=== PATIENT | male | born 1980 | race Caucasian/White ===

== ENCOUNTER 2025-03-29 18:07 | Emergency (ER) | payer OTHER, SELFPAY ==
--- OUTSIDE RECORDS SUMMARY | 2025-03-29 18:10 | XMS_ITS | Clinical Summary ---
Author Organization [facility] Address [address] [place] [address] Care Team Providers Care Manager Business Name Role Phone Marlon Herrera MD Primary Care Provider [phone] Allergies No known active allergies Medications albuterol HFA (PROVENTIL HFA,VENTOLIN HFA,PROAIR HFA) 90 mcg/actuation inhaler Inhale 2 puffs every 6 hours as needed Active clonazePAM (KlonoPIN) 1 mg tablet Take 1 tablet (1 mg total) by mouth daily 5 Active escitalopram (LEXAPRO) 20 mg tablet Take 1 tablet (20 mg total) by mouth daily 5 Active polyethylene glycol (GoLYTELY) 236-22.74-6.74 -5.86 gram solution Drink 2L(half of jug)at 6pm night before procedure and 2L(remainder of jug)at 3:30 am day of test FOLLOW INSTRUCTIONS SENT BY OUR OFFICE 4000 mL 5 Active fluticasone propion-salmete roL (ADVAIR DISKUS) 100-50 mcg/dose diskus inhaler Inhale 1 puff 2 (two) times a day 180 each 1 5 Active Active Problems Problem Noted Date Diagnosed Date History of colon polyps 01/29/2025 Family history of colon cancer in mother 025 Assessment & Plan (08/24/2024 4:54 PM CDT): Screening colonoscopy ordered. Mild persistent asthma without complication 08/02 Assessment & Plan (08/24/2024 4:54 PM CDT): Continue with generic Advair (Wixela) and p.r.n. albuterol. Obsessive-compulsive disorder 08/24/2024 Assessment & Plan (08/24/2024 4:54 PM CDT): From psychiatrist, currently on Lexapro 30 mg daily. ECG performed in the office to monitor for any QTC prolongation. Basal cell carcinoma (BCC) of face 10/14/2012 Skin neoplasm 09/28/2012 Skin benign neoplasm 09/28/2012 Tinea versicolor 12/05/2010 Encounters Date Type Department Care Team Description 01/29/2025 Orders Only [facility] at the [address] [place] [address] Marlon Herrera MD 12/29/2024 Results Follow-Up [facility] [address] [place] [address] Advanced Medicine 12th [place] [address] [place] [address] Kimberlee Pedraza MD Surgical pathology 12/28/2024 11:15 AM CDT Anesthesia Event [facility] [address] [address] Sandip Bryson MD Laubert, Desiree Elizabeth, GADIEL 12/28/2024 10:30 AM CDT - 12/28/2024 11:15 AM CDT Surgery [facility] [address] [address] Kimberlee Pedraza MD COLON REMOVAL SNARE 12/28/2024 9:37 AM CDT - 12/28/2024 12:29 PM CDT Hospital Encounter [facility] [address] [address] Curtis Martinez MD PhD Kimberlee Pedraza MD Family history of colon cancer Discharge Disposition: Discharge to home or self care from Last 3 Months Immunizations Immunization Administration Dates Next Due Influenza, Quadrivalent, Spl it, Preservative Free, Intramuscular 02/14/2021,02/15/2018,05/21/2017,03/23 Influenza, Trivalent, IM (MDV) 02/06/2020 Influenza, Unspecified 02/01/2024 Pfizer SARS-CoV-2 Monovalent Vaccination (12+ Yrs) PURPLE 04/05/2021,07/30/2020,07/01/2020 Tdap 08/07/2015 Medical History Medical History Date Comments Personal history of other ma lignant neoplasm of skin History of skin cancer - (Ad ded by TW Conv) Asthma Anxiety Skin cancer, basal cell Family History Medical History Relation Name Comments Heart murmur Brother s/p AVR in half brother Melanoma Father during a t rial for melanoma Colon cancer Mother dx in 2018 Lupus Mother dx in bu t remission Melanoma Other Malignant Melan greg Of The Skin - (Added by TW Conv) Relation Name Status Comments Brother Alive Father Mother Alive Other Social History Tobacco Use Types Packs/Day Years Used Date Smoking Tobacco: Never Tobacco Cessation:Counseling Given: Not Answered Alcohol Use Standard Drinks/Week Comments Yes 2 (1 standard drink = 0.6 oz pur e alcohol) PHQ-2 Answer Date Recorded PHQ-2 Total Score (If total score is 3 or more points, staff should administer the PHQ-9) 0 08/24/2024 AUDIT-C Answer Date Recorded Q1: How often do you have a drink containing alc ohol? 2-4 times a month 12/28/2024 Q2: How many drinks containi ng alcohol do you have on a typical day when you are drinking? 3 or 4 12/28/2024 Q3: How often do you have si x or more drinks on one occasion? Less than monthly 12/28/2024 Personal Safety Answer Date Recorded Have you ever been in or are you currently in a harmful physical or emotional relationship or is someone making you feel afraid or unsafe? 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 Not on file Not on file Not on file Last Filed Vital Signs Vital Sign Reading Time Taken Comments Blood Pressure 116/80 12/28/2024 12:05 PM CDT Pulse 54 12/28/2024 12:05 PM CDT Temperature 36.1 C (97 F) 12/28/2024 11:39 AM CDT Respiratory Rate 12 12/28/2024 12:05 PM CDT Oxygen Saturation 96% 12/28/2024 12:05 PM CDT Inhaled Oxygen Concentration - - Weight 102.1 kg (225 lb) 12/28/2024 10:18 AM CDT Height 188 cm (6' 2) 12/28/2024 10:18 AM CDT Body Mass Index 28.89 12/28/2024 10:18 AM CDT Plan of Treatment Scheduled Procedures Name Priority Associated Diagnoses Date/Ti me COLONOSCOPY Open Access Family history of colon cancer in mother Health Maintenance Due Date Last Done Comments Hepatitis C Screening 1980 Varicella Vaccines (1 of 2 - 13+ 2-dose series) 12/30/1992 Hepatitis B Screening 12/30/1997 Regular Well Visit/Exam 18-64 12/30/1997 Pneumococcal vaccine <65 (1 of 2 - PCV) 12/30/1998 HPV Vaccines (1 - 3-dose SCD M series) 12/30/2006 Covid-19 Vaccine (4 - 2024-2 6 season) 2025 04/05/2021, 07/30/2020, 07/01/2020 Influenza Vaccine (#1) 2025 , 02/14/2021, 02/06/2020, Additional history exists DTaP/Tdap/Td Vaccine (2 - Td or Tdap) 08/06/2025 08/07/2015 Depression Screening 08/24/2025 08/24/2024 Colon Cancer Screening-Colonoscopy 12/28/20292024 Procedures Procedure Name Priority Date/Time Associated Diagnosis Comments SURGICAL PATHOLOGY Routine 12/28/2024 11 :44 AM CDT Family history of colon cancer COLON REMOVAL SNARE 12/28/2024 1 1:17 AM CDT Family history of colon cancer COLONOSCOPY 12/28/2024 10:51 AM CDT from Last 3 Months Results * Surgical pathology (12/28/2024 11:44 AM CDT) Tissue (Polyp(s), colon/colorectal, esophageal, gastric) 12/28/2024 11:44 AM CDT Narrative PATHOLOGY [facility] - 12/29/2024 12:40 PM CDT EPIC results best viewed via link to PDF [facility] [place] [address] Note to Patients: This report may contain a detailed description of human tissue sent by a health care provider to the laboratory for pathologic evaluation. The content of this report is essential for diagnosis and may provide important critical findings. This information may be unfamiliar to patients to review without a medical professional present. It is advised that the patient review this report in the presence of a health care provider who can answer questions and explain the details. SURGICAL PATHOLOGY REPORT FINAL Patient Name: CHRISTOPHER EVANS Gender: M : 1980 (Age: 43) Address: [address] [place] [address] Hospital #: [id number] Taken:12/28/2024 Received:12/28/2024 Reported: 12/29/2024 Patient Type: [facility] Service: Gastro Location: Physician(s): Kimberlee Pedraza M.D. Diagnosis: Large bowel, descending colon polyp, biopsy - Tubular adenoma j/12/29/2024 10:20 By this signature, I attest that the above diagnosis is based upon my personal examination of the slides(and/or other material indicated in the diagnosis). Aly Dolan MD PhD Report Electronically Reviewed and Signed Out By Aly Dolan MD PhD 12/29/2024 12:40:03 Ignacio Cross D.O. History: The patient is a 43-year-old man presenting with a family history of colon cancer. Operative procedure: Colon removal snare. Specimen(s) Received: A: Descending colon polyp Gross Description: Received in formalin, labeled with the patient s identifiers and descending colon polyp and consists of a single solorio-pink polypoid fragment(s) of soft tissue measuring 1.0 cm in greatest dimension. Labeled A1. Jar 0. sxst/12/28/2024 14:22 PA(s): Edie Perez By this signature, I attest that the above diagnosis is based upon my personal examination of the slides(and/or other material). Addenda/Procedures The performance characteristics of some immunohistochemical stains, fluorescence in-situ hybridization tests and immunophenotyping by flow cytometry cited in this report (if any) were determined by the Surgical Pathology and Flow Cytometry Departments at [facility] as part of an ongoing dairy quality assurance officer program and in compliance with federally mandated regulations drawn from the Clinical Laboratory Improvement Act of 1988 (CLIA '88). Some of these tests rely on the use of analyte specific reagents and are subject to specific labeling requirements by the US Food and Drug Administration. Such diagnostic tests may only be performed in a facility that is certified by the Department of Health and Human Services as a high complexity laboratory under CLIA '88. The FDA has determined that such clearance or approval is not necessary. This test is used for clinical purposes. It should not be regarded as investigational or for research. Nevertheless, federal rules concerning the medical use of analyte specific reagents require that the following disclaimer be attached to the report: This test was developed and its performance characteristics determined by the Surgical Pathology and Flow Cytometry Departments of [facility]. It has not been cleared or approved by the U. S. Food and Drug Administration. IMAGES AND SCANNED DOCUMENTS, IF INCLUDED, ONLY VIEWABLE IN PDF VERSION OF REPORT Kimberlee Pedraza MD LAB PATHOLOGY ORDERABL ES Final Result [facility] 3rd Floor [place], [place] [phone] * Colonoscopy (12/28/2024 10:51 AM CDT) Anatomical Region Laterality Modality Other Narrative Procedure Note Kimberlee Pedraza MD - 12/28/2024 10:51 AM CDT GI ENDOSCOPY [facility] Patient Name: Christopher Evans Procedure Date: 12/28/2024 10:51 AM Date of : 1980 Admit Type: Outpatient Age: 43 Gender: Male Attending MD: Kimberlee Pedraza M.D., Room: [facility] ENDOSCOPY ROOM 8 Note Status: Finalized Procedure: Colonoscopy Indications: Screening patient at increased risk: Family historyof 1st-degree relative with colorectal cancer at age60 years (or older) Referring MD: Marlon Herrera M.D. Providers: Kimberlee Pedraza M.D., Christopher Núñez M.D. Medicines: Propofol per Anesthesia Complications: No immediate complications. Estimated Blood Loss: Estimated blood loss was minimal. Procedure: Pre-Anesthesia Assessment: - Using IV propofol under the supervision of a ONCOLOGY SOCIAL WORK was determined to be medically necessary for this procedure based on review of the patient's medical history, medications, and prior anesthesiahistory. - Immediately prior to administration ofmedications, the patient was re-assessed for adequacy to receive sedatives. - The risks and benefits of the procedure and the sedation options and risks were discussed with the patient. All questions were answered and informed consent was obtained. The benefits, risks and alternatives of theprocedure and sedation were discussed and informed consentwas obtained. All questions were answered. Please referto the signed informed consent document in the medical record. The scope was passed under direct vision.The CF [id number] endoscope was introduced through the anus and advanced to the cecum, identified by appendiceal orifice and ileocecal valve. The scopewas passed under direct vision. The [id number] endoscope was introduced through the anus andadvanced to the cecum, identified by appendiceal orifice and ileocecal valve. The colonoscopy was performedwithout difficulty. The patient tolerated the procedurewell. The quality of the bowel preparation was good. The ileocecal valve, appendiceal orifice, and rectumwere photographed. The bowel preparation used wasGoLYTELY. Findings: 7 mm polyp was found in the descending colon. The polyp was semi-pedunculated. The polyp was removed with a cold snare. Resection and retrieval were complete. The exam was otherwise without abnormality on direct and retroflexion views. Impression: - Single polyp resected and retrieved Recommendation: - Await pathology results. Attending Participation: I was present and participated during the entire procedure, including non-pantoja portions. Electronically Signed by Kimberlee Pedraza M.D. Kimberlee Pedraza M.D. 12/28/2024 11:46:02 AM . Number of Addenda: 0 Note Initiated On: 12/28/2024 10:51 AM Kimberlee Pedraza MD ENDOSCOPY PROCEDURES F inal Result from Last 3 Months Insurance R [facility] Address: [facility] [id number] [place] [id number] R [facility] Address: [address] [address] Advance Directives For more information, please contact: [phone] * Full Code (Latest Code Status on File) Date Activated Date Inactivated Comments 12/28/2024 10:17 AM 12/28/2024 4:38 PM Care Teams Manager Business Relationship Specialty Start Date End Date Marlon Herrera MD [facility] [address] Angela [address] [address] PCP - General Internal Medicine 08/24/24
--- OUTSIDE RECORDS SUMMARY | 2025-03-29 18:10 | XMS_ITS | Clinical Summary ---
Author Organization [facility] Address [address] [place] [address] Care Team Providers Care Detective Narcotics And Vice Name Role Phone Ney Paulino MD Primary Care Provider [phone] Source Comments [facility],non-owned Affiliates and Associated Physician Practices is amultiple site organization consisting of ambulatory clinics and hospital sitesin [place] and [place]. This disclosure is being madepursuant to the Care Everywhere program and may not contain all information available regarding this patient. Last updated 18.[facility] Dexin Interactive Allergies No known active allergies Medications * Be aware that medications may not be up to date on this document. Alwaysverify current medications with the patient. budesonide-formo terol (SYMBICORT) 80-4.5 MCG/ACT inhaler Inhale 2 Puffs by mouth 2 times daily Active sertraline (ZOLOFT) 100 MG tablet Take 100 mg by mouth once daily Active Immunizations Immunization Administration Dates Next Due TDAP (7yrs+) 08/07/2015 Family History Medical History Relation Name Comments Heart Disease Father Lupus Mother Relation Name Status Comments Father Mother Alive Social History Tobacco Use Types Packs/Day Years Used Date Smoking Tobacco: Former Cigarettes 0 Q uit: 08/06/2004 Alcohol Use Standard Drinks/Week Comments Yes 10 (1 standard drink = 0.6 oz pu re alcohol) Sex and Gender Information Value Date Recorded Sex Assigned at Not on file 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 Gender Identity Not on file Sexual Orientation Not on file Last Filed Vital Signs Vital Sign Reading Time Taken Comments Blood Pressure 135/84 03/24/2016 2:01 PM ARMATURE STRAIGHTENER Pulse 73 03/24/2016 2:01 PM ARMATURE STRAIGHTENER Temperature 36.7 C (98.1 F) 08/06/2015 8:39 PM CDT Respiratory Rate 18 08/06/2015 8:39 PM CDT Oxygen Saturation 99% 08/07/2015 1:07 AM CDT Inhaled Oxygen Concentration - - Weight 95.3 kg (210 lb) 06/05/2016 9:52 AM ARMATURE STRAIGHTENER Height 188 cm (6' 2) 06/05/2016 9:52 AM ARMATURE STRAIGHTENER Body Mass Index 26.96 06/05/2016 9:52 AM ARMATURE STRAIGHTENER Plan of Treatment Health Maintenance Due Date Last Done Comments COLOGUARD (AGES 45-75) - COL ON CA SCREENING 1980 COLON MONITORING 1979 COLONOSCOPY - COLON CA SCREENING 1979 CT COLONOGRAPHY - COLON CA SCREENING 1980 Colorectal Cancer Screening 1980 FIT - COLON CA SCREENING 1979 FLEX SIG - COLON CA SCREENING 1979 LIPID TESTING 1980 HIV SCREENING 12/30/1994 HEPATITIS C SCREENING 12/26/1997 HEPATITIS B VACCINE (1 of 3 - 19+ 3-dose series) 12/30/1998 HPV VACCINE (1 - 3-dose SCDM series) 12/30/2006 DEPRESSION SCREENING 05/03/2024 COVID-19 VACCINE (1 - 2024-2 6 season) 2025 INFLUENZA VACCINE (#1) 2025 DTAP/TDAP/TD VACCINES (2 - T d or Tdap) 08/06/2025 08/07/2015 ZOSTER VACCINE (1 of 2) 12/30/2029 HIB VACCINE Aged Out No longer eligi ble based on patient's age to complete this topic MENINGOCOCCAL (Group B) VACC INE SHARED DECISION-MAKING Aged Out No longer eligibl e based on patient's age to complete this topic MENINGOCOCCAL GROUPS A/C/Y/W VACCINE Aged Out No longer eligible b ased on patient's age to complete this topic PNEUMOCOCCAL VACCINE Aged Out No long er eligible based on patient's age to complete this topic Insurance [facility] Care Teams Detective Narcotics And Vice Relationship Specialty Start Date End Date Ney Paulino MD PCP - General Internal Medicine 08/07/15
--- OUTSIDE RECORDS SUMMARY | 2025-03-29 18:10 | XMS_ITS | Clinical Summary ---
Author Organization [facility] Address [address] [place] [address] Phone Care Team Providers Care Exchange Specialist Name Role Phone Maryse Sheriff MD Primary Care Provider + Allergies No known active allergies Medications albuterol HFA 90 mcg inhaler Take 2 Puffs by inhalation every 6 hours as needed for Shortness of Breath. Active sertraline (ZOLOFT) 100 mg tabletIndicatio ns:Generalized anxiety disorder TAKE 1 TABLET(100 MG) BY MOUTH DAILY 100 Tablet 4 Active LORazepam (ATIVAN) 0.5 mg tabletIndicatio ns:Generalized anxiety disorder TAKE 1 TABLET(0.5 MG) BY MOUTH DAILY NEEDED FOR ANXIETY 90 Tablet 4 Active Wixela Inhub 100-50 mcg/dose disk inhaler INHALE 1 PUFF BY MOUTH TWICE DAILY 180 Each 5 Active Active Problems Problem Noted Date Diagnosed Date Generalized anxiety disorder 02/08/2020 Attention deficit hyperactivity disorder (ADHD) 02/08/2020 Tobacco use 02/08/2020 Asthma Resolved Problems Problem Noted Date Diagnosed Date Resolved Date Alcohol consumption heavy 02/08/2020 Immunizations Immunization Administration Dates Next Due (ADACEL/BOOSTRIX)(10 YR UP) TDAP VACCINE, 0.5ML, IM 08/07/2015 (PFIZER)(12 YR UP) COVID-19 VACCINE - EMERGENCY USE AUTHORIZATION, MRNA, [id number](PF) 30 MCG/0.3 ML IM SUSP 07/30/2020,07/01/2020 INFLUENZA VACCINE QUADRIVALE NT 6 MOS UP PF IM 02/15/2018,05/21/2017,03/23/2016 Influenza Seasonal Unspecifi ed Formulation IM 02/06/2020 Family History Medical History Relation Name Comments Cancer Father Heart Disease Father Lung Cancer Maternal Grandmother Other Maternal Grandmother immune disorders Colon Cancer Mother Other Mother Lupus Unknown Paternal Grandfather Heart Disease Paternal Grandmother Relation Name Status Comments Father Maternal Grandfather Maternal Grandmother Mother Alive Paternal Grandfather Paternal Grandmother Social History Tobacco Use Types Packs/Day Years Used Date Smoking Tobacco: Former Cigarettes 0 Q uit: 05/09/2001 Smokeless Tobacco: Former Chew Tobacco Cessation:Counseling Given: No Alcohol Use Standard Drinks/Week Comments Yes 0 (1 standard drink = 0.6 oz pur e alcohol) Sometimes Sex and Gender Information Value Date Recorded Sex Assigned at Not on file 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 Gender Identity Not on file Sexual Orientation Not on file Last Filed Vital Signs Vital Sign Reading Time Taken Comments Blood Pressure 128/82 10/28/2022 10:00 AM CDT Pulse 83 10/28/2022 10:00 AM CDT Temperature 35.6 C (96 F) 10/28/2022 10:00 AM CDT Respiratory Rate 20 10/28/2022 10:0 0 AM CDT Oxygen Saturation 96% 10/28/2022 10: 00 AM CDT Inhaled Oxygen Concentration - - Weight 102.1 kg (225 lb 0.6 oz) 023 10:00 AM CDT Height 188 cm (6' 2) 10/28/2022 10:00 AM CDT Body Mass Index 28.89 10/28/2022 10:00 AM CDT Plan of Treatment Health Maintenance Due Date Last Done Comments HEPATITIS B VACCINES (1 of 3 - 19+ 3-dose series) 12/30/1998 HPV VACCINES (1 - 3-dose SCD M series) 12/30/2006 Preventative Visit- Commercial 05/03/2024 10/28/2022 INFLUENZA VACCINE (#1) 2024 0, 02/06/2020, 02/15/2018, Additional history exists COLORECTAL SCREENING 12/30/2024 Colorectal Cancer Screening 12/30/2024 FIT-DNA Q 3 years 12/30/2024 FIT/FOBT Q 1 year 12/30/2024 Flex Sig/CT Colonography Q 5 years 12/30/2024 COVID-19 Vaccine (4 - 2024-2 6 season) 2025 04/05/2021, 07/30/2020, 07/01/2020 DTAP/TDAP/TD VACCINES (2 - T d or Tdap) 08/06/2025 08/07/2015 Insurance [facility] [id number] Care Teams Exchange Specialist Relationship Specialty Start Date End Date Maryse Sheriff MD [address] [place] [address] PCP - General Internal Medicine 02/08/20
[2025-03-29 18:11] VITALS: BP 120/89; PULSE 90; RESP 20; TEMP 36.4; O2SAT 97
[2025-03-29 18:15] VITALS: O2SAT 100
[2025-03-29] MEDS: ALBUTEROL SULFATE NEB 2.5 MG/3 ML INH 5 MG INHALATION (18:32)
[2025-03-29] MEDS: IPRATROPIUM BR 0.02% INH SOLN 0.5 MG/2.5 ML VIAL 1 MG INHALATION (18:32)
[2025-03-29 18:38] VITALS: PULSE 92; RESP 17
--- NOTE | 2025-03-29 18:41 | ED.URI ---
HPI - URI/Sore Throat General Chief Complaint: Upper Respiratory Infection Stated Complaint: Asthma attack-URI wants breathing treatment Time Seen by Provider: 03/29/25 18:14 History of Present Illness HPI Narrative: Patient is getting over a respiratory illness, already on a Z-Cade, steroids, he would just like to have a breathing treatment here. Already feeling better after leaving his mother's house where she has cats he is allergic to Related Data Home Medications ?Medication ?Instructions ?Recorded ?Confirmed ?Last Taken ?Type albuterol sulfate 90 mcg/actuation 2 inh inhalation Q4-6H PRN 10/07/21 10/07/21 Unknown History breath activated powder inhaler,sensor (Proair Digihaler) budesonide-formoterol HFA 80 2 puff inhalation Q12H 10/07/21 10/07/21 Unknown History mcg-4.5 mcg/actuation aerosol inhaler (Symbicort) lorazepam 0.5 mg tablet 0.5 mg PO DAILY PRN 10/07/21 10/07/21 Unknown History sertraline 50 mg tablet 50 mg PO DAILY 10/07/21 10/07/21 Unknown History Allergies Allergy/AdvReac Type Severity Reaction Status Date / Time No Known Allergies Allergy Verified 03/29/25 18:09 Review of Systems Review of Systems: All systems reviewed & are unremarkable except as noted in HPI and below [facility] Social History Social History (Reviewed 10/07/21 @ 08:47 by Lee Ann Ruelas [facility]) Smoking status: Never smoker Alcohol intake: current Substance use: never Exam Narrative: EXAMINATION OF ORGAN SYSTEMS/BODY AREAS: Constitutional: Vital signs per nursing GENERAL:[No acute distress, non-toxic appearing.] HEAD: Normal with no signs of head trauma. EYES: EOMI, conjunctiva normal ENT: Hearing grossly intact LUNGS: Nonlabored breathing. Speaking full sentences. Wheezing bilaterally HEART: [Regular rate and rhythm] ABD: [Soft], [nontender to palpation] EXT: Normal range of motion SKIN: [No rashes or lesions.] NEURO: [Alert and oriented x 3. No gross focal sensory or strength deficits.] PSYCH: Normal affect Course Vital Signs Vital signs: Vital Signs Temperature 97.6 F 03/29/25 18:11 Pulse Rate 90 03/29/25 18:11 Respiratory Rate 20 03/29/25 18:11 Blood Pressure 120/89 03/29/25 18:11 Pulse Oximetry 97 03/29/25 18:11 Oxygen Delivery Room Air 03/29/25 18:11 Temperature 97.6 F 03/29/25 18:11 Pulse Rate 92 03/29/25 18:38 Respiratory Rate 17 03/29/25 18:38 Blood Pressure 120/89 03/29/25 18:11 Pulse Oximetry 100 03/29/25 18:15 Oxygen Delivery Room Air 03/29/25 18:15 MDM - URI/Sore Throat MDM Narrative Medical decision making narrative: Patient presenting with what feels like asthma exacerbation, already on antibiotics and steroids for this, has an albuterol inhaler, just would like to have a breathing treatment. Very well-appearing here, speaking full sentences, does have some wheezing, vital signs are stable. Breathing treatments ordered, I will also give him a prescription for breathing treatments so that he can take them at home when he has these flares. Patient agreeable to plan with follow-up to PCP and return precautions. Discharge Plan Discharge Clinical Impression: Bronchitis Patient Disposition: Home Condition: Stable Instructions: Acute Bronchitis (ED) Additional Instructions: Please follow up with your PCP; you can always return to the ER for any further issues. Patient Language: Maori Prescriptions: New prednisone 20 mg tablet 40 mg PO DAILY 3 Days Qty: 6 0RF ipratropium-albuterol 0.5 mg-3 mg(2.5 mg base)/3 mL solution for nebulization 3 ml inhalation Q6H PRN (Reason: shortness of breath or wheezing) Qty: 180 0RF No Action budesonide-formoterol [Symbicort] 80-4.5 mcg/actuation HFA aerosol inhaler 2 puff inhalation Q12H Proair Digihaler 90 mcg/actuation aero powdr breath act w/sensor 2 inh inhalation Q4-6H PRN sertraline 50 mg tablet 50 mg PO DAILY lorazepam 0.5 mg tablet 0.5 mg PO DAILY PRN Follow-up/Referrals: Jaziel,Maryse Bruno MD [Primary Care Provider, Unknown]
[2025-03-29 19:41] VITALS: PULSE 94; RESP 18
[2025-03-29 19:54] VITALS: BP 124/81; PULSE 126; RESP 20; TEMP 36.6; O2SAT 99
== END 2025-03-29 19:56 | disposition home or self-care (01) ==
PROVIDERS: Emergency Provider Emergency Medicine; PCP Internal Medicine
DX: J40 Bronchitis, not specified as acute or chronic (principal)
CPT/HCPCS: 94640; 99283